=== PATIENT | female | born 1995 | race Caucasian/White ===

== ENCOUNTER 2023-09-10 13:59 | Outpatient (CLI) | payer MEDICAID, SELFPAY ==
--- NOTE | ~2023-09-10 | US_ITS ---
EXAMINATION: US OB /maternal detail DATE: 09/10/2023 15:26 INDICATION: Second trimester anatomic survey TECHNIQUE: Real-time ultrasound of the pelvis was performed. COMPARISON: None. FINDINGS: There is a single living fetus in variable presentation. The placenta is anterior and 1.6 cm from the internal cervical os. The measured cervical length is 5.9 cm heart rate is 139 beats per minut e (bpm). cardiac activity and movement are noted. The amniotic fluid index is subjective ly normal. The following anatomy was identified as normal: 4 chamber heart 3 vessel cord cord insertion kidneys urinary bladder stomach spine diaphragm ventricles cisterna magna cerebellum The following biometric data were obtained: Biparietal diameter (BPD): 4.7 cm; head circumference (HC): 18.0 cm; abdominal circumference (AC): 15 .3 cm; femur length (FL): 3.1 cm. These measurements are concordant. Estimated weight is 330 g +/- 49 g, which correlates with the 41st percentile when 01/27/2024 is used as estimated date of delivery. As single measurements, these parameters are each equal to the following estimated gestational ages w ith ranges of +/- 2 standard deviations: BPD: 20 weeks 2 days +/- 1 weeks 5 days. HC: 20 weeks 3 days +/- 1 weeks 3 days. AC: 20 weeks 3 days +/- 2 weeks 0 days. FL: 19 weeks 3 days +/- 1 weeks 6 days. estimated gestational age based solely on measurements from this exam is 20 weeks 1 days +/- 1 weeks 3 days. IMPRESSION: 1. Single living fetus in variable presentation. 2. Estimated weight is 330 g +/- 49 g, which correlates with the 41st percentile when 01/27/2024 is used as estimated date of delivery. 3. Low-lying placenta. Reviewed, dictated and finalized at location F. IMPRESSION: 1. Single living fetus in variable presentation. 2. Estimated weight is 330 g +/- 49 g, which correlates with the 41st per centile when 01/27/2024 is used as estimated date of delivery. 3. Low-lying placenta.
== END 2023-09-10 14:00 | disposition home or self-care (01) ==
PROVIDERS: Visit Provider Student in an Organized Health Care Education/Training Program
DX: Z34.92 Encounter for supervision of normal pregnancy, unspecified, second trimester (principal); Z3A.20 20 weeks gestation of pregnancy
CPT/HCPCS: 76805

== ENCOUNTER 2023-11-05 10:43 | Outpatient (CLI) | payer OTHER, SELFPAY ==
--- NOTE | ~2023-11-05 | US_ITS ---
EXAMINATION: US OB follow up DATE: 11/05/2023 12:08 INDICATION: Low-lying placenta. TECHNIQUE: Real-time ultrasound of the pelvis was performed. COMPARISON: Ultrasound 09/10/2023 FINDINGS: There is a single living fetus in transverse lie. The placenta is anterior, 4.6 cm from the cervix. The cervical length is 3.2 cm on transabdominal images, which is normal. heart rate is 143 beat s per minute (bpm). The amniotic fluid index is 15.9 cm, which is normal. The following biometric data were obtained: Biparietal diameter (BPD): 7.1 cm; head circumference (HC): 27.6 cm; abdominal circumference (AC): 24 .4 cm; femur length (FL): 5.2 cm. These measurements are concordant. Estimated weight is 1227 g +/- 184 g, which correlates with the 48th percentile when 01/27/24 is used as estimated date of delivery. As single measurements, these parameters are each equal to the following estimated gestational ages: BPD: 28 weeks 2 days. HC: 30 weeks 1 days. AC: 28 weeks 5 days. FL: 27 weeks 4 days. estimated gestational age based solely on measurements from this exam is 28 weeks 5 days +/- 2 weeks 0 days. IMPRESSION: 1. Single living fetus in transverse lie. 2. Estimated weight is 1227 g +/- 184 g, which correlates with the 48th percentile when 01/27/24 is used as estimated date of delivery. 3. Normal placenta, 4.6 cm from the cervix. Reviewed, dictated and finalized at location E.
== END 2023-11-05 10:44 | disposition home or self-care (01) ==
LOC: ANHIMG 10:44
PROVIDERS: Visit Provider Obstetrics & Gynecology
DX: O44.40 Low lying placenta NOS or without hemorrhage, unspecified trimester (principal); Z3A.00 Weeks of gestation of pregnancy not specified
CPT/HCPCS: 76816

== ENCOUNTER 2024-01-15 11:41 | Outpatient (RCR) | payer OTHER, SELFPAY ==
[2024-01-15 12:18] VITALS: BP 105/72; PULSE 87
== END 2024-04-14 23:59 | disposition home or self-care (01) ==
LOC: ANHOBOP 11:41
PROVIDERS: Visit Provider Obstetrics & Gynecology
DX: O36.8130 Decreased fetal movements, third trimester, not applicable or unspecified (principal); Z3A.38 38 weeks gestation of pregnancy
CPT/HCPCS: 59025

== ENCOUNTER 2024-01-20 00:17 | Inpatient (IN) | payer OTHER, SELFPAY ==
[2024-01-20] VITALS (145 sets, daily range): BP systolic 86–124; BP diastolic 49–94; PULSE 58–123; RESP 16–18; TEMP 36.6–36.9; O2SAT 96–100; BMI 26.4
--- NOTE | 2024-01-20 01:21 | LDADM ---
This patient, Yesica Mahoney, was admitted to Labor/Delivery/Recovery 107 on 01/20/24 at 00:17. Plans for labor, pain management and were discussed with patient. Patient/family oriented to hospital policies and general routines including ID bracelet, bed and alarms, visiting hours, pain management, procedures, bathroom and other care routines, personal items, smoking policy, room service/diet and guest tray routines, infant security routines, and visiting hours. Patient/Family are encouraged to report perceived risks to care and to ask questions if they do not understand what they are told or what they should do. See OBIX for further documentation.
[2024-01-20 01:38] LABS: Basophils Percent Auto 0.3 % (0.2-1.2); Eosinophils Absolute Auto 0.1 K/mm3 (0-0.3); Eosinophils Percent Auto 0.9 % (0-4.4); Hematocrit 33.4 % (37.0-47.0); Hemoglobin 10.9 g/dL (12.0-15.0); Immature Granulocyte Absolute 0.18 K/mm3 (0.00-0.031); Immature Granulocyte Percent A 1.4 % (0-0.5); Lymphocytes Absolute Auto 2.31 K/mm3 (0.9-3.2); Lymphocytes Percent Auto 17.9 % (18.3-44.2); Mean Corpuscular HGB Conc 32.6 g/dl (32-36); Mean Corpuscular Hemoglobin 27.8 pg (26-34); Mean Corpuscular Volume 85.2 fl (80-100); Mean Platelet Volume 9.8 fl (7.4-10.4); Monocytes Percent Auto 7.8 % (2.6-8.5); Neutrophils Absolute Auto 9.2 K/mm3 (1.3-6.7); Neutrophils Percent Auto 71.7 % (45.5-73.1); Platelet Count Result 392 k/mm3 (150-375); Red Blood Count 3.92 M/mm3 (4.2-5.4); Red Cell Distribution Width 12.6 % (11.5-14.5); White Blood Count 12.9 K/mm3 (4.5-10.0)
[2024-01-20] MEDS: miSOPROStol 25 MCG TABLET BUCCAL (01:41)
[2024-01-20 02:11] LABS: Rapid Plasma Reagin Non-Reactive (NonReactive)
[2024-01-20 02:30] LABS: HIV 1/2 Ab P24 Ag Result Negative (Negative)
[2024-01-20] MEDS: LACTATED RINGERS 1,000 ML 125 ML IV CONT ×3 (06:16→12:18)
--- NOTE | 2024-01-20 06:37 | WPDANESEPP ---
Anes - Eval Pre Procedure Procedure: Labor Epidural Date/Time: 01/20/24 06:37 Surgeon: Kelby Preop Diagnosis: Labor Pain Pre Op Diagnosis: IOL Patient Data Age: 28 Gender: F Height: 1.55 m Weight: 63.5 kg Last Vital Signs Temp 36.6 C 01/20/24 03:19 Pulse 80 01/20/24 06:31 BP 108/72 01/20/24 06:31 O2 Del Method Room Air 01/20/24 01:21 Allergies Allergy/AdvReac Type Severity Reaction Status Date / Time No Known Allergies Allergy Verified 01/19/24 13:33 Home Medications Medication Instructions Recorded Confirmed Type docosahexaenoic acid 200 mg 200 mg PO DAILY 12/31/23 01/20/24 History capsule ( DHA) Laboratory Tests 01/20/24 01:33 WBC 12.9 H K/mm3 (4.5-10.0) RBC 3.92 L M/mm3 (4.2-5.4) Hgb 10.9 L g/dL (12.0-15.0) Hct 33.4 L % (37.0-47.0) MCV 85.2 fl (80-100) MCH 27.8 pg (26-34) MCHC 32.6 g/dl (32-36) RDW 12.6 % (11.5-14.5) Plt Count 392 H k/mm3 (150-375) MPV 9.8 fl (7.4-10.4) Immature Gran % (Auto) 1.4 H % (0-0.5) Neut % (Auto) 71.7 % (45.5-73.1) Lymph % (Auto) 17.9 L % (18.3-44.2) [place] % (Auto) 7.8 % (2.6-8.5) Eos % (Auto) 0.9 % (0-4.4) Baso % (Auto) 0.3 % (0.2-1.2) Lymph # (Auto) 2.31 K/mm3 (0.9-3.2) [place] # (Auto) 1.0 H K/mm3 (0.1-0.6) Eos # (Auto) 0.1 K/mm3 (0-0.3) Baso # (Auto) 0.0 K/mm3 (0.0-0.1) Abs Immat Gran (auto) 0.18 H K/mm3 (0.00-0.031) Absolute Neuts (auto) 9.2 H K/mm3 (1.3-6.7) Absolute Nucleated RBC 0.000 K/mm3 (0.0-0.012) Nucleated RBC % 0.0 % (0.0-0.2) RPR Non-reactive (NonReactive) HIV 1&2 Ab/P24 Ag 4thGn Negative (Negative) Blood Type A Positive Antibody Screen Negative : gestational age (, SARA 01/27/24) Patient hx anesthesia problems: none Family hx anesthesia problems: none Results Review: All pre-operative results and documents have been reviewed as part of the pre-operative evaluation. [facility] Past Medical History Medical History Family History Family History Mother Breast cancer Social History Social History Smoking status: Never smoker Second hand tobacco smoke exposure: No Alcohol intake: never Substance use: never Do You Feel Safe in your Home?: Yes Lack of Transportation: No Lack of Food: Never True Current Housing: I Have Housing Concerned About Future Housing: No Difficulty Paying Gas/Electric Bills: No Difficulty Paying for Meds: No Currently Unemployed: No Education: Bachelor's Degree Difficulty w/ Childcare or Family Care: No Living arrangements: with family Occupation/Education: occupation Gender identity (if verbalized by the patient): Female Spiritual care concerns: No Exam Day of Procedure 01/20/24 06:37 Patient weight: normal Heart: regular rate and rhythm Lungs: normal air movement Airway: Mallampati scale class II Neurological: alert and oriented
--- NOTE | 2024-01-20 07:15 | PM.IMHP ---
H&P: HPI History of Present Illness Date/Time: 01/20/24 07:15 Chief Complaint: IOL Narrative: Yesica is a 28yo @ 39.1wks who presented at midnight for elective IOL. She had 1 dose of cytotec overnight; feeling regular contractions and now s/p epidural and more comfortable. She reports good movement. No VB or LOF. She has had regular care. Her was complicated by: - low lying placenta-- RESOLVED - malpresentation -- RESOLVED (cephalic) Review of Systems Constitutional: Constitutional: Denies chills, Denies fever(s) and Denies headache(s) Eyes: Eyes: Denies change in vision ENT: Denies headache(s) Cardiovascular: Cardiovascular: Denies chest pain and Denies dyspnea Respiratory: Respiratory: Denies dyspnea Genitourinary: Genitourinary: Denies abnormal vaginal bleeding and Denies vaginal discharge Neurologic: Denies headache(s) Psychiatric: Psychiatric: Denies anxiety and Denies depression [facility] Past Medical History Medical History Family History Family History Mother Breast cancer Social History Social History Smoking status: Never smoker Second hand tobacco smoke exposure: No Alcohol intake: never Substance use: never Do You Feel Safe in your Home?: Yes Lack of Transportation: No Lack of Food: Never True Current Housing: I Have Housing Concerned About Future Housing: No Difficulty Paying Gas/Electric Bills: No Difficulty Paying for Meds: No Currently Unemployed: No Education: Bachelor's Degree Difficulty w/ Childcare or Family Care: No Living arrangements: with family Occupation/Education: occupation Gender identity (if verbalized by the patient): Female Spiritual care concerns: No Meds Home Medications and Allergies Home Medications Medication Instructions Recorded Confirmed Type docosahexaenoic acid 200 mg 200 mg PO DAILY 12/31/23 01/20/24 History capsule ( DHA) Allergies Allergy/AdvReac Type Severity Reaction Status Date / Time No Known Allergies Allergy Verified 01/19/24 13:33 Vital Signs Vital Signs - 24 hr 01/20/24 00:46 01/20/24 01:01 01/20/24 01:16 Temperature Pulse Rate 96 89 92 Blood Pressure 109/66 105/70 109/65 Pulse Oximetry Oxygen Delivery 01/20/24 01:31 01/20/24 01:46 01/20/24 02:01 Temperature Pulse Rate 77 89 77 Blood Pressure 114/73 116/77 110/65 Pulse Oximetry Oxygen Delivery 01/20/24 02:16 01/20/24 02:31 01/20/24 02:46 Temperature Pulse Rate 77 78 77 Blood Pressure 109/69 102/73 110/73 Pulse Oximetry Oxygen Delivery 01/20/24 03:01 01/20/24 03:16 01/20/24 03:19 Temperature 97.8 F Pulse Rate 81 82 Blood Pressure 106/58 L 109/74 Pulse Oximetry Oxygen Delivery 01/20/24 03:31 01/20/24 03:46 01/20/24 04:01 Temperature Pulse Rate 71 76 87 Blood Pressure 119/76 108/73 106/66 Pulse Oximetry Oxygen Delivery 01/20/24 04:16 01/20/24 04:31 01/20/24 04:46 Temperature Pulse Rate 80 81 79 Blood Pressure 107/71 108/68 90/76 L Pulse Oximetry Oxygen Delivery 01/20/24 05:00 01/20/24 05:16 01/20/24 05:31 Temperature Pulse Rate 75 81 104 H Blood Pressure 109/69 112/82 116/94 H Pulse Oximetry Oxygen Delivery 01/20/24 05:46 01/20/24 06:01 01/20/24 06:16 Temperature Pulse Rate 81 73 74 Blood Pressure 111/78 116/72 109/75 Pulse Oximetry Oxygen Delivery 01/20/24 06:31 01/20/24 06:48 01/20/24 07:01 Temperature Pulse Rate 80 88 78 Blood Pressure 108/72 115/66 115/71 Pulse Oximetry Oxygen Delivery 01/20/24 07:05 01/20/24 07:09 01/20/24 07:10 Temperature 98.1 F Pulse Rate Blood Pressure Pulse Oximetry 100 100 Oxygen Delivery 01/20/24 07:13
[2024-01-20] MEDS: ONDANSETRON INJ 4 MG/2 ML VIAL IV PUSH (12:18)
[2024-01-20] MEDS: OXYTOCIN 30 UNITS/NS 500 ML 30 UNITS/500 ML BAG 999 UNITS IV CONT (12:50)
--- NOTE | 2024-01-20 13:08 | P.PCNOB_ITS ---
OB - Vaginal Delivery Note Procedure Delivery date: 01/20/24 Events: Elective Induction of Labor Induction method: Per Misoprostol Protocol Delivery augmentation: Rupture of Membranes Delivery monitor: External FHT and External Uterine Route of delivery: Episiotomy description: None Laceration Description: Perineal - 2nd Degree (prior scar) Delivery repair: vicryl Specimen: No Quantitative Blood Loss (ml): 50 Anesthesia type: Epidural Disposition: Floor Complications: No immediate complications [place] Baby Date of : 01/20/24 Time of : 12:50 Gestational Age by Date: 39 (.0) Infant gender: Female Weight (pounds): 8 Weight (ounces): 4 presentation: vertex Placenta delivery description: Expressed Cord Vessel Description: 3 Vessels and Delayed Cord Clamping score one minute: 8 score five minutes: 9 Narrative: Yesica rapidly progressed to complete dilation with strong desire to push. She pushed for 6 contractions with good maternal effort and delivered the head over intact perineum. No nuchal cord was palpated. She easily delivered the 's shoulders and body without complication. The was immediately placed skin to skin and had spontaneous cry with stimulation. Delayed cord clamping was performed. The umbilical cord was then doubly clamped and cut. A segment of the cord was collected for cord gases. The remaining cord blood was collected for typing. With Pitocin running and gentle downward traction on the cord, the placenta delivered without complication. Bimanual massage was performed and good uterine tone with minimal bleeding was noted. She was examined and her prior laceration scar was noted to have a laceration. It was a second-degree perineal laceration. The laceration was repaired in the normal fashion using 2-0 Vicryl. Bimanual massage was once again performed and good uterine tone with minimal bleeding was noted. Sponge, lap, instrument, and needle counts were correct at the end the procedure. Mom and baby were left bonding in the birthing suite in stable condition.
[2024-01-20] MEDS: OXYTOCIN 30 UNITS/NS 500 ML 30 UNITS/500 ML BAG 125 UNITS IV CONT (13:47)
[2024-01-20] MEDS: ACETAMINOPHEN 325 MG TABLET 650 MG PO ×2 (14:44→22:43)
[2024-01-20] MEDS: BENZOCAINE 20% AER SPR (*SP) 56 GM CAN 1 SPRAY TOPICAL (15:05)
[2024-01-20] MEDS: WITCH HAZEL 40 PADS 1 PAD TOPICAL (15:05)
--- NOTE | 2024-01-20 15:30 | OBPPTRN ---
Patient transferred to post room #280 via wheelchair. Support person present. Oriented to unit, room, information board, rooming in, admission packet and security measures. Patient verbalizes understanding.
[2024-01-20] MEDS: POLYSACCHARIDE IRON COMPLEX 150 MG CAPSULE PO (16:53)
[2024-01-20] MEDS: IBUPROFEN 600 MG TABLET PO (17:32)
[2024-01-21] MEDS: ACETAMINOPHEN 325 MG TABLET 650 MG PO ×2 (04:49→12:18)
[2024-01-21 05:26] LABS: Hematocrit 34.6 % (37.0-47.0); Hemoglobin 10.7 g/dL (12.0-15.0); Mean Corpuscular HGB Conc 30.9 g/dl (32-36); Mean Corpuscular Hemoglobin 27.1 pg (26-34); Mean Corpuscular Volume 87.6 fl (80-100); Platelet Count Result 406 k/mm3 (150-375); Red Blood Count 3.95 M/mm3 (4.2-5.4); Red Cell Distribution Width 12.4 % (11.5-14.5); White Blood Count 17.2 K/mm3 (4.5-10.0)
--- NOTE | 2024-01-21 06:28 | PM.OBPNVD ---
OB - PN: Subj Subjective Date/time seen: 01/21/24 07:22 Narrative: PPD#1 Yesica reports doing well today. Her bleeding is quality control. Her pain is controlled. She is tolerating regular diet, voiding, passing gas, and ambulating without issues. She is breast feeding and supplementing. She would like to go home this afternoon. OB - PN: Obj Data Labs 01/21/24 04:52 Labs: Laboratory Results - last 24 hr 01/20/24 01:33 WBC 12.9 H RBC 3.92 L Hgb 10.9 L Hct 33.4 L MCV 85.2 MCH 27.8 MCHC 32.6 RDW 12.6 Plt Count 392 H MPV 9.8 Immature Gran % (Auto) 1.4 H Neut % (Auto) 71.7 Lymph % (Auto) 17.9 L [place] % (Auto) 7.8 Eos % (Auto) 0.9 Baso % (Auto) 0.3 Lymph # (Auto) 2.31 [place] # (Auto) 1.0 H Eos # (Auto) 0.1 Baso # (Auto) 0.0 Abs Immat Gran (auto) 0.18 H Absolute Neuts (auto) 9.2 H Absolute Nucleated RBC 0.000 Nucleated RBC % 0.0 RPR Non-reactive HIV 1&2 Ab/P24 Ag 4thGn Negative Blood Type A Positive Antibody Screen Negative OB - PN A/P Assessment and Plan (1) Normal vaginal delivery of second : Code(s): O80 - Encounter for full-term uncomplicated delivery Status: Acute Plan day: 1 Plan: routine care Comments: - PO pain meds - Regular diet - Ambulation and hydration encouraged - Continue putting baby to breast q2-3hr - Pelvic rest; take meds as prescribed - ER return precautions: fever, n/v/abd pain, bleeding, HTN Time Spent With Patient Time: Total time spent is greater than 50% in coordination of care (as documented) at patient's floor/unit and/or counseling patient: Review of Systems Constitutional: Constitutional: Denies chills, Denies fever(s) and Denies headache(s) Eyes: Eyes: Denies change in vision ENT: Denies dizziness and Denies headache(s) Cardiovascular: Cardiovascular: Denies chest pain, Denies palpitations and Denies dyspnea Respiratory: Respiratory: Denies cough and Denies dyspnea Gastrointestinal: Gastrointestinal: Denies nausea and Denies vomiting Neurologic: Denies dizziness and Denies headache(s) Endocrine: Endocrine: Denies palpitations Exam Const: General: cooperative, healthy appearing, comfortable and no acute distress Orientation/consciousness: patient oriented x3 Resp: Effort & Inspection: normal respiratory effort Auscultation: clear to auscultation bilaterally Cardio: Rate: regular rate GI: Inspection: non-distended GI Palp: No abdominal tenderness and Yes Soft to palpation Auscultation: normal bowel sounds : Other: fundus firm Skin: General skin exam: normal color Neuro: General: patient oriented x3 Extrem: General: normal to inspection Psych: Appearance: grossly normal Affect: normal affect Attitude: cooperative
--- NOTE | 2024-01-21 07:43 | PM.OBDSVD ---
DS: Admitting Diagnosis Discharge Date 01/21/24 Admitting Diagnosis Elective Induction of Labor DS: Discharge Diagnosis Discharge Diagnosis (1) Normal vaginal delivery of second : Code(s): O80 - Encounter for full-term uncomplicated delivery Status: Acute OB - DS: Summary OB Procedures : Ultrasound OB Procedures Intrapartum: Spontaneous Vag Delivery OB Procedures: : None Peripartum Data Infant Delivery Method: Natural Vaginal Laceration Description: Perineal - 2nd Degree (prior scar) Episiotomy description: None complications: none 1: Gender: Female Disposition of : home Status at Discharge Functional status at discharge: independent ambulation Overall status at discharge: patient is back to baseline Time Spent with Patient Time attestation: Total time spent providing and/or coordinating discharge services: Time spent: Less than 30 minutes Exam Const: General: cooperative, healthy appearing, comfortable and no acute distress Orientation/consciousness: patient oriented x3 Resp: Effort & Inspection: normal respiratory effort Auscultation: clear to auscultation bilaterally Cardio: Rate: regular rate GI: Inspection: non-distended GI Palp: No abdominal tenderness and Yes Soft to palpation Auscultation: normal bowel sounds : Other: fundus firm Skin: General skin exam: normal color Neuro: General: patient oriented x3 Extrem: General: normal to inspection Psych: Appearance: grossly normal Affect: normal affect Attitude: cooperative DS: Data Data Completed and Pending Labs on day of discharge: Labs from last 24 hours 01/20/24 01:33 WBC 12.9 H RBC 3.92 L Hgb 10.9 L Hct 33.4 L MCV 85.2 MCH 27.8 MCHC 32.6 RDW 12.6 Plt Count 392 H MPV 9.8 Immature Gran % (Auto) 1.4 H Neut % (Auto) 71.7 Lymph % (Auto) 17.9 L [place] % (Auto) 7.8 Eos % (Auto) 0.9 Baso % (Auto) 0.3 Lymph # (Auto) 2.31 [place] # (Auto) 1.0 H Eos # (Auto) 0.1 Baso # (Auto) 0.0 Abs Immat Gran (auto) 0.18 H Absolute Neuts (auto) 9.2 H Absolute Nucleated RBC 0.000 Nucleated RBC % 0.0 RPR Non-reactive HIV 1&2 Ab/P24 Ag 4thGn Negative Blood Type A Positive Antibody Screen Negative Discharge Plan Discharge Attending physician on discharge: Kiana Lama Discharging Clinician: Kiana Lama Anticipated Discharge Date/Time: 01/21/24 16:00 Patient Disposition: Home, Self-Care Activity: may shower and pelvic rest Diet: regular Patient Instructions: Vaginal Delivery (DC) Stand Alone Forms: General Discharge Information Follow-up/Referrals: Kiana Lama MD [Physician] - 4 Weeks Discharge Medications: New acetaminophen 325 mg Tablet 650 mg PO Q6H PRN (Reason: Mild Pain (1-3) Or Headache) Qty: 60 0RF docusate sodium 100 mg Capsule 100 mg PO BID PRN (Reason: Constipation) Qty: 90 0RF ibuprofen 600 mg Tablet 600 mg PO Q6H PRN (Reason: Cramping) Qty: 40 0RF Continued DHA 200 mg capsule 200 mg PO DAILY Date of admission: 01/20/24 00:17 Primary Care Provider: PHYSICIAN,NURSING CARE ATTENDANT Admitting Provider: Kiana Lama Attending physician on admission: Kiana Lama Condition: Stable
[2024-01-21 07:50] VITALS: BP 106/67; PULSE 67; RESP 16; TEMP 36.8; O2SAT 99
[2024-01-21] MEDS: MULTIVIT/MIN/PREN/FOL AC/IRON TABLET 1 TAB PO (07:53)
[2024-01-21] MEDS: IBUPROFEN 600 MG TABLET PO ×2 (07:53→16:24)
[2024-01-21] MEDS: DOCUSATE SODIUM 100 MG CAPSULE PO (07:53)
--- NOTE | 2024-01-21 10:45 | PC.NURSE ---
Called to patient room because she is attempting to feed and baby is very sleepy. She says that she initially had some good feedings but now she struggles to wake baby. We moved away from mom and woke her up. When was more alert, we attempted to latch to the left breast in cradle hold. Baby was opening her mouth and rooting, but would not close her mouth or suck. We worked to reposition and have her open wider, and we were able to latch well. Baby does tend to roll her upper lip in. Baby continued to suckle off and on with some stimulation. Encouraged mother to try to keep baby feeding for 10-15 minutes. Mother can feel tugging when baby sucks but denies any pain. Primary RN brought in a breast pump, but since baby fed this time at the breast, mom did not initiate pumping yet. We discussed that if infant continues to be sleepy at future feedings, it would be a good idea to pump for stimulation, and give anything she pumps. Mother agrees with this plan and will call out if/when she is ready to pump so we can go over pump use and flange size. Mother verbalized understanding. Reported to Primary RN.
--- NOTE | 2024-01-21 12:53 | WPDANLDPN2 ---
Anes-Prog Note L&D Date/Time: 01/21/24 12:53 Neuro status: Neuro function grossly intact. Vital Signs: Last Vital Signs Temp 36.8 C 01/21/24 07:50 Pulse 67 01/21/24 07:50 Resp 16 01/21/24 07:50 BP 106/67 01/21/24 07:50 Pulse Ox 99 01/21/24 07:50 O2 Del Method Room Air 01/21/24 07:50 Pain score (VAS): 0 I/O: Intake & Output 01/20/24 01/21/24 01/21/24 23:59 07:59 15:59 Intake Total 140 Balance 140 Patient feedback: Patient satisfied with anesthetic care.
[2024-01-21 19:00] VITALS: BP 96/67; PULSE 87; RESP 18; TEMP 36.5; O2SAT 100
[2024-01-22 07:55] VITALS: BP 103/69; PULSE 78; RESP 16; TEMP 37.6; O2SAT 98
[2024-01-22 08:00] VITALS: PULSE 78; RESP 16; O2SAT 98
[2024-01-22] MEDS: DOCUSATE SODIUM 100 MG CAPSULE PO (08:36)
[2024-01-22] MEDS: IBUPROFEN 600 MG TABLET PO (08:36)
[2024-01-22] MEDS: MULTIVIT/MIN/PREN/FOL AC/IRON TABLET 1 TAB PO (08:37)
--- NOTE | 2024-01-22 09:58 | PC.NURSE ---
Patient viewed the discharge video Mother & Baby Care, The First Two Weeks . Patient was given the opportunity and encouraged to ask questions. Patient verbalized understanding of information shared and has been given the mother/baby guide for home reference.
--- NOTE | 2024-01-22 10:21 | PC.NURSE ---
Consulted with mother concerning needs and she shared her ability to independently latch infant optimally without pain. Mother is feeding appropriately for growth of and understands stimulating to eat if needed. Infant has had appropriate feedings in the last 24 hours meets the outcomes for weight, output, blood sugar and jaundice at this time. Reinforced understanding of milk production, transition of milk, signs of adequate intake, transition of stool, prevention/relief of engorgement, plugged ducts, mastitis, responsive watching for feeding cues, the different methods of stimulating to breastfeed 1-3 hours after the start of the last feeding, community resources, and when to call a provider using the resource of the feeding sheet along with the mom and baby guide. Mother voiced understanding of the information shared, is confident to continue effectively her infant at home, when to call for assistance, denies any additional assistance or education at this time. Reported to the Primary RN.
[2024-01-23 08:33] VITALS: PULSE 79; RESP 18; TEMP 36.5; O2SAT 98
== END 2024-01-22 12:37 | disposition home or self-care (01) | DRG 560 ==
LOC: ANHLDR 00:20 → ANHOB2 15:44
PROVIDERS: Admitting Provider Obstetrics & Gynecology; Visit Provider Obstetrics & Gynecology
DX: O70.1 Second degree perineal laceration during delivery (principal); Z37.0 Single live birth; Z3A.39 39 weeks gestation of pregnancy
CPT/HCPCS: 36415; 85025; 85027; 86592; 86703; 86850; 86900; 86901; A9270; G0432; J2405; J2590; J2795; J7120